=== PATIENT | male | born 1990 | race Caucasian/White ===

== ENCOUNTER → 2024-02-07 14:16 | Outpatient (CLI) | payer OTHER, SELFPAY ==
--- NOTE | 2024-02-07 14:18 | DI.US.S_ITS ---
PROCEDURE: US ABDOMEN LIMITED INDICATIONS: RIGHT UPPER QUADRANT PAIN TECHNIQUE: Real-time focused scanning was performed of the abdomen, with image documentation. COMPARISON: None. FINDINGS: Normal size liver with a smooth margin and homogeneously moderately hyperechoic hepatic parenchyma. No discrete mass. Portal vein size at the upper limits of normal with appropriate direction of flow. No intra or extrahepatic biliary dilatation. The extrahepatic common duct is 5 mm. The gallbladder is normal without stones, sludge, wall thickening, or pericholecystic fluid. The visible portion of the pancreas and right kidney are normal. No perihepatic fluid. IMPRESSION: Mild hepatic parenchymal echogenicity suggesting steatosis or other intrinsic liver disease. Normal gallbladder. Dictated by: Coco Nash M.D. on 02/07/2024 at 18:25 Approved by: Coco Nash M.D. on 02/07/2024 at 18:27
== END ==
PROVIDERS: Referring Provider Internal Medicine; Visit Provider Internal Medicine
DX: E66.01 Morbid (severe) obesity due to excess calories (principal)
CPT/HCPCS: 76705